=== PATIENT | female | born 1990 ===

== ENCOUNTER 2017-11-27 15:20 | Emergency (ER) | payer SELFPAY ==
[2017-11-27 15:33] VITALS: BP 127/87
--- NOTE | 2017-11-27 15:47 | UC ---
Respiratory Complaint HPI - HPI Summary HPI Summary: Pt has asthma and allergies, has been traveling and does not have any more albuterol or advair. Also using otc claritin D for nasal allergy symptoms. Currently not feeling as symptomatic, but has been having some rough periods of wheezing and tightness in the chest today and yesterday. - History of Current Complaint Chief Complaint: UCRespiratory Stated Complaint: SCRIPT REFILL Time Seen by Provider: 11/27/17 15:25 Hx Obtained From: Patient Hx Last Menstrual Period: now ?: No Onset/Duration: Gradual Onset, Lasting Weeks Timing: Constant Severity Initially: Mild Severity Currently: Moderate Pain Intensity: 0 Character: Cough: Nonproductive Aggravating Factors: Deep Breaths, Recumbent Position Alleviating Factors: Bronchodilator, OTC Meds Associated Signs And Symptoms: Positive: Dyspnea, Wheezing, Nasal Congestion Related History: Seasonal Allergies - Allergies/Home Medications Allergies/Adverse Reactions: Allergies Allergy/AdvReac Type Severity Reaction Status Date / Time No Known Allergies Allergy Verified 11/27/17 15:33 PMH/Surg Hx/FS Hx/Imm Hx Respiratory History: Asthma - Surgical History Surgical History: None - Family History Known Family History: Negative: Blood Disorder - Social History Occupation: Employed Full-time Alcohol Use: Occasionally Substance Use Type: None Smoking Status (MU): Never Smoked Tobacco Review of Systems Constitutional: Negative Skin: Negative Eyes: Negative ENT: Negative Respiratory: Shortness Of Breath, Cough Cardiovascular: Negative Gastrointestinal: Negative Genitourinary: Negative Motor: Negative Neurovascular: Negative Musculoskeletal: Negative Neurological: Negative Psychological: Negative Is Patient Immunocompromised?: No All Other Systems Reviewed And Are Negative: Yes Physical Exam Triage Information Reviewed: Yes Appearance: Well-Appearing, No Pain Distress, Well-Nourished Vital Signs: Initial Vital Signs Temp 97.9 F 11/27/17 15:28 Pulse 96 11/27/17 15:28 Resp 18 11/27/17 15:28 BP 127/87 11/27/17 15:28 Pulse Ox 99 11/27/17 15:28 Vital Signs Reviewed: Yes Eye Exam: Normal Eyes: Positive: Conjunctiva Clear ENT: Positive: Hearing grossly normal, Pharynx normal, Nasal congestion, TMs normal. Negative: Nasal drainage, Tonsillar swelling, Tonsillar exudate, Hoarse voice Dental Exam: Normal Neck exam: Normal Neck: Positive: Supple, Nontender, No Lymphadenopathy Respiratory: Positive: No respiratory distress, No accessory muscle use, Wheezing - faint, at bases only Cardiovascular: Positive: No Murmur, Tachycardia - pt has recently taken decongenstant Musculoskeletal Exam: Normal Musculoskeletal: Positive: Strength Intact Neurological Exam: Normal Neurological: Positive: Alert Psychological Exam: Normal Skin Exam: Normal Diagnostic Evaluation - Laboratory O2 Sat by Pulse Oximetry: 99 Respiratory Course/Dx - Differential Dx/Diagnosis Provider Diagnoses: asthma. allergic rhinitis Discharge - Sign-Out/Discharge Documenting (check all that apply): Discharge/Admit/Transfer - Discharge Plan Condition: Stable Disposition: HOME Prescriptions: Albuterol HFA INHALER* [Ventolin HFA Inhaler*] 2 puff INH Q4HR #1 mdi Beclomethasone Dipropionate [Qnasl] 2 spray BOTH NARES DAILY #1 bottle Fluticasone-Salmeterol 250-50* [Advair Diskus 250-50*] 1 puff INH DAILY #1 diskus Patient Education Materials: Asthma (ED), Allergic Rhinitis (ED) Additional Instructions: Follow up with your primary care provider in [facility] - Billing Disposition and Condition Condition: STABLE Disposition: HOME
== END 2017-11-27 15:49 | disposition home or self-care (01) ==
LOC: UCEAST 15:20
DX: J45.909 Unspecified asthma, uncomplicated (principal); Z76.0 Encounter for issue of repeat prescription
CPT/HCPCS: 99202; G0463